=== PATIENT | male | born 1955 | race Caucasian/White ===

== ENCOUNTER 2018-05-17 22:57 | Inpatient (IN) | payer OTHER ==
[~2018-05-17] VITALS: Ht 175.3 cm; Wt 70.7 kg
[2018-05-17 23:29] LABS: BASOPHILS # (AUTO) 0.05 x10^3/uL (0-0.1); BASOPHILS % (AUTO) 1 % (0-1); EOSINOPHILS # (AUTO) 0.19 x10^3/uL (0-0.4); EOSINOPHILS % (AUTO) 2 % (1-7); LYMPHOCYTES # (AUTO) 1.77 x10^3/uL (1-3.4); LYMPHOCYTES % (AUTO) 17 % (22-44); MD NO; MEAN CORPUSCULAR HEMOGLOBIN 30.4 pg (27.5-34.5); MEAN CORPUSCULAR HGB CONC 34.3 g/dL (33.2-36.2); MEAN CORPUSCULAR VOLUME 88.7 fL (81-97); MEAN PLATELET VOLUME 8.9 fL (7.4-10.4); MONOCYTES # (AUTO) 0.54 x10^3/uL (0.2-0.8); MONOCYTES % (AUTO) 5 % (2-9); NEUTROPHILS # (AUTO) 7.73 x10^3/uL (1.8-6.8); NEUTROPHILS % (AUTO) 75 % (42-75); PLATELET COUNT 241 x10^3/uL (130-400); RED BLOOD COUNT 4.25 x10^6/uL (4.38-5.82); RED CELL DISTRIBUTION WIDTH 13.5 % (9.4-14.8)
[2018-05-17 23:40] LABS: ALANINE AMINOTRANSFERASE 31 U/L (12-78); ALBUMIN 3.5 g/dL (3.4-5.0); ANION GAP 7 mmol/L (5-15); CALCIUM 8.5 mg/dL (8.5-10.1); CHLORIDE 110 mmol/L (98-107)
[2018-05-17 23:43] LABS: ALKALINE PHOSPHATASE 105 U/L (45-117); BILIRUBIN,TOTAL 0.5 mg/dL (0.2-1.0); CREATININE 0.88 mg/dL (0.7-1.3); TOTAL PROTEIN 6.3 g/dL (6.4-8.2)
[2018-05-18] MEDS ORDERED: METO25TA35 PO (00:18)
[2018-05-18] MEDS ORDERED: NAPR500T8 PO (00:18)
[2018-05-18] MEDS ORDERED: MORP-52 PO (00:18)
[2018-05-18] MEDS ORDERED: ATOR80TA PO (00:18)
[2018-05-18] MEDS ORDERED: LISI-167 PO (00:18)
[2018-05-18] MEDS ORDERED: METF500T5 PO (00:18)
[2018-05-18] MEDS ORDERED: ONDANSETRON 2MG/ML, 2ML IVPush ONE (00:30)
[2018-05-18] MEDS ORDERED: SODIUM CHLORIDE 0.9% 1,000ML IVBOLUS ONE (00:30)
[2018-05-18] MEDS ORDERED: SODIUM CHLORIDE FLUSH 10ML SYR IVF ONE (00:30)
[2018-05-18] MEDS ORDERED: MORPHINE SULFATE 4 MG/ML, 1ML IVPush PRN (00:30)
[2018-05-18] MEDS ORDERED: POLY17PO5 PO (00:34)
[2018-05-18] MEDS: LACTATED RINGERS 1,000 ML IV SCH ×3 (00:57→21:40)
[2018-05-18] MEDS ORDERED: MORPHINE SULFATE 4 MG/ML, 1ML ONE (00:59)
[2018-05-18] MEDS ORDERED: ACETAMINOPHEN 325 MG TABLET PO PRN (01:00)
[2018-05-18] MEDS ORDERED: ONDANSETRON 2MG/ML, 2ML IVPush PRN (01:00)
[2018-05-18 01:20] VITALS: BP 128/79
[2018-05-18 01:36] VITALS: BP 128/79
[2018-05-18] MEDS: ENOXAPARIN 40 MG/0.4 ML SQ SCH (03:03)
[2018-05-18 05:16] LABS: BASOPHILS # (AUTO) 0.03 x10^3/uL (0-0.1); BASOPHILS % (AUTO) 0 % (0-1); EOSINOPHILS # (AUTO) 0.23 x10^3/uL (0-0.4); EOSINOPHILS % (AUTO) 2 % (1-7); LYMPHOCYTES # (AUTO) 1.59 x10^3/uL (1-3.4); LYMPHOCYTES % (AUTO) 17 % (22-44); MD NO; MEAN CORPUSCULAR HEMOGLOBIN 30.5 pg (27.5-34.5); MEAN CORPUSCULAR HGB CONC 33.9 g/dL (33.2-36.2); MEAN CORPUSCULAR VOLUME 89.7 fL (81-97); MEAN PLATELET VOLUME 8.9 fL (7.4-10.4); MONOCYTES # (AUTO) 0.54 x10^3/uL (0.2-0.8); MONOCYTES % (AUTO) 6 % (2-9); NEUTROPHILS # (AUTO) 6.98 x10^3/uL (1.8-6.8); NEUTROPHILS % (AUTO) 75 % (42-75); PLATELET COUNT 197 x10^3/uL (130-400); RED BLOOD COUNT 4.07 x10^6/uL (4.38-5.82); RED CELL DISTRIBUTION WIDTH 13.4 % (9.4-14.8)
[2018-05-18] MEDS: morphine SULFATE 10 MG/ML, 1ML IVPush PRN ×2 (05:19→22:15)
[2018-05-18 05:28] LABS: CHLORIDE 112 mmol/L (98-107)
[2018-05-18 05:35] LABS: ALANINE AMINOTRANSFERASE 40 U/L (12-78); ALKALINE PHOSPHATASE 105 U/L (45-117); ANION GAP 9 mmol/L (5-15); BILIRUBIN,TOTAL 0.7 mg/dL (0.2-1.0); CALCIUM 7.8 mg/dL (8.5-10.1); CREATININE 0.77 mg/dL (0.7-1.3); TOTAL PROTEIN 5.6 g/dL (6.4-8.2); TRIGLYCERIDES 77 mg/dL (50-200)
[2018-05-18 06:33] LABS: MICROSCOPIC AUTO
[2018-05-18 06:44] LABS: CULTURE INDICATED? YES
[2018-05-18 08:03] VITALS: BP 134/76
[2018-05-18] MEDS: LACTULOSE 10 GM/15 ML UDC PO SCH ×2 (08:37→21:45)
[2018-05-18] MEDS: ATORVASTATIN 80 MG TABLET PO SCH (08:39)
[2018-05-18] MEDS: METOPROLOL TARTRATE 25 MG TABLET PO SCH (08:40)
[2018-05-18] MEDS ORDERED: POLYETHYLENE GLYCOL 17 GM PACKET PO SCH (09:00)
[2018-05-18 13:57] VITALS: BP 130/78
[2018-05-18 19:36] VITALS: BP 122/63
[2018-05-19 01:33] VITALS: BP 105/63
[2018-05-19] MEDS: ENOXAPARIN 40 MG/0.4 ML SQ SCH (03:03)
[2018-05-19] MEDS: LACTATED RINGERS 1,000 ML IV SCH (05:25)
[2018-05-19] MEDS: morphine SULFATE 10 MG/ML, 1ML IVPush PRN (05:49)
[2018-05-19 07:25] VITALS: BP 111/68
[2018-05-19] MEDS: LACTULOSE 10 GM/15 ML UDC PO SCH (09:00)
[2018-05-19] MEDS: METOPROLOL TARTRATE 25 MG TABLET PO SCH (09:19)
[2018-05-19] MEDS: ATORVASTATIN 80 MG TABLET PO SCH (09:19)
[2018-05-19 14:04] VITALS: BP 104/65
== END 2018-05-19 15:00 | disposition home or self-care (01) | DRG 440 ==
LOC: ED 23:59 → SUATTDRO 05-18 00:40 → EDIP 05-18 00:40 → 3NE 05-18 01:20 → DCLOUNGE 05-19 15:00
PROVIDERS: ADMIT Hospitalist; ATTEND Family Medicine
DX: K85.00 Idiopathic acute pancreatitis without necrosis or infection (principal); E11.9 Type 2 diabetes mellitus without complications; E78.5 Hyperlipidemia, unspecified; I10 Essential (primary) hypertension; I25.10 Atherosclerotic heart disease of native coronary artery without angina pectoris; K21.9 Gastro-esophageal reflux disease without esophagitis; K59.00 Constipation, unspecified; Z95.1 Presence of aortocoronary bypass graft; Z90.49 Acquired absence of other specified parts of digestive tract
CPT/HCPCS: 36415; 74022; 80053; 81001; 83690; 84478; 85025; 87086; 96361; 96374; J1650; J2405; J2270; J7030; J7120

== ENCOUNTER 2018-06-17 12:36 | Emergency (ER) | payer OTHER ==
[~2018-06-17] VITALS: Ht 175.3 cm; Wt 62.7 kg
[~2018-06-17 12:36] MED LIST: ATOR80TA PO; LISI-167 PO; METF500T5 PO; METO25TA35 PO; MORP-52 PO; NAPR500T8 PO; POLY17PO5 PO
[2018-06-17 12:41] VITALS: BP 105/64
== END 2018-06-17 14:08 | disposition home or self-care (01) ==
LOC: ED 13:00
DX: S83.92XA Sprain of unspecified site of left knee, initial encounter (principal); I25.810 Atherosclerosis of coronary artery bypass graft(s) without angina pectoris; I10 Essential (primary) hypertension; E78.5 Hyperlipidemia, unspecified; Z90.89 Acquired absence of other organs; Z90.49 Acquired absence of other specified parts of digestive tract; E11.9 Type 2 diabetes mellitus without complications; X50.1XXA Overexertion from prolonged static or awkward postures, initial encounter; Y93.01 Activity, walking, marching and hiking; Y92.830 Public park as the place of occurrence of the external cause; Y99.8 Other external cause status; Z95.1 Presence of aortocoronary bypass graft
CPT/HCPCS: 29505; 99284

== ENCOUNTER 2019-12-31 12:52 | Emergency (ER) | payer MEDICARE, MEDICAID ==
[~2019-12-31] VITALS: Ht 175.3 cm; Wt 58.7 kg
[~2019-12-31 12:52] MED LIST changes: +METF500T17 PO; -METF500T5 PO
[2019-12-31 13:03] VITALS: BP 137/67
[2019-12-31 13:26] LABS: BASOPHILS # (AUTO) 0.08 x10^3/uL (0-0.1); BASOPHILS % (AUTO) 1 % (0-1); EOSINOPHILS # (AUTO) 0.02 x10^3/uL (0-0.4); EOSINOPHILS % (AUTO) 0 % (1-7); LYMPHOCYTES # (AUTO) 1.36 x10^3/uL (1-3.4); LYMPHOCYTES % (AUTO) 13 % (22-44); MD NO; MEAN CORPUSCULAR HEMOGLOBIN 30.2 pg (27.5-34.5); MEAN CORPUSCULAR HGB CONC 33.2 g/dL (33.2-36.2); MEAN CORPUSCULAR VOLUME 90.9 fL (81-97); MEAN PLATELET VOLUME 9.4 fL (7.4-10.4); MONOCYTES # (AUTO) 0.34 x10^3/uL (0.2-0.8); MONOCYTES % (AUTO) 3 % (2-9); NEUTROPHILS # (AUTO) 8.93 x10^3/uL (1.8-6.8); NEUTROPHILS % (AUTO) 83 % (42-75); PLATELET COUNT 285 x10^3/uL (130-400); RED BLOOD COUNT 4.56 x10^6/uL (4.38-5.82); RED CELL DISTRIBUTION WIDTH 13.8 % (9.4-14.8)
[2019-12-31] MEDS ORDERED: DIPH,PERTUSS(ACELL),TET VAC/PF 0.5 ML IM-VACC ONE (13:30)
[2019-12-31 13:35] LABS: ALBUMIN 3.8 g/dL (3.4-5.0); ANION GAP 7 mmol/L (5-15); CALCIUM 8.6 mg/dL (8.5-10.1); CHLORIDE 112 mmol/L (98-107); CREATININE 0.94 mg/dL (0.7-1.3)
--- NOTE | 2019-12-31 14:10 | NUR ---
RAIL SPECIALIST: PT TO ROOM VIA WHEELCHAIR FROM [facility]
--- NOTE | 2019-12-31 14:32 | NUR ---
pT HERE FOR LEFT ANKLE SWELLING. PT HAD SURGERY ON THAT SIDE AND HARDWARE PLACED ABOUT 1 YEAR AGO. PT REPORTS PAIN WITH AMBULATION. PT DENIES TRAUMA. PT CONNECTED TO MONITORS AND CALL LIGHT IN REACH. BEDRAILS UP.
[2019-12-31] MEDS ORDERED: LIDOCAINE 2%, 20ML SQ ONE (15:00)
[2019-12-31] MEDS ORDERED: BUPIVACAINE/PF-EPI 0.25% 1:200K SQ ONE (15:00)
[2019-12-31] MEDS ORDERED: BUPIVACAINE 0.25% ONE (15:16)
[2019-12-31] MEDS ORDERED: LIDOCAINE 1%-EPI 1:100K, 20ML ONE (15:16)
--- NOTE | 2019-12-31 16:23 | NUR ---
Patient/Caregiver given discharge instructions and they have confirmed that they understand the instructions. Patient ambulatory with steady gait.
== END 2019-12-31 16:58 | disposition home or self-care (01) ==
LOC: ED 13:30
DX: M79.672 Pain in left foot (principal); E11.9 Type 2 diabetes mellitus without complications; I25.10 Atherosclerotic heart disease of native coronary artery without angina pectoris; I10 Essential (primary) hypertension; E78.5 Hyperlipidemia, unspecified; Z90.89 Acquired absence of other organs; Z90.49 Acquired absence of other specified parts of digestive tract; Z95.1 Presence of aortocoronary bypass graft
CPT/HCPCS: 10060; 36415; 80048; 82040; 85025; 99284

== ENCOUNTER 2020-05-12 14:17 | Emergency (ER) | payer MEDICARE, MEDICAID ==
[~2020-05-12] VITALS: Ht 175.3 cm; Wt 65.6 kg
[2020-05-12 14:18] VITALS: BP 166/76
--- NOTE | 2020-05-12 14:43 | NUR ---
AGRICULTURE INTERNSHIP: PT TO ROOM FROM LOBBY, GAIT SLOW AND STEADY
[2020-05-12] MEDS ORDERED: HYDROmorphone 1 MG/ML, 1ML INJ ONE (15:21)
[2020-05-12] MEDS ORDERED: HYDROmorphone 2 MG/ML, 1ML IM ONE (15:30)
[2020-05-12 15:32] LABS: BASOPHILS # (AUTO) 0.04 x10^3/uL (0-0.1); BASOPHILS % (AUTO) 0 % (0-1); EOSINOPHILS # (AUTO) 0.22 x10^3/uL (0-0.4); EOSINOPHILS % (AUTO) 2 % (1-7); LYMPHOCYTES # (AUTO) 0.92 x10^3/uL (1-3.4); LYMPHOCYTES % (AUTO) 9 % (22-44); MD NO; MEAN CORPUSCULAR HEMOGLOBIN 29.9 pg (27.5-34.5); MEAN CORPUSCULAR HGB CONC 32.4 g/dL (33.2-36.2); MEAN CORPUSCULAR VOLUME 92.3 fL (81-97); MEAN PLATELET VOLUME 8.4 fL (7.4-10.4); MONOCYTES # (AUTO) 0.55 x10^3/uL (0.2-0.8); MONOCYTES % (AUTO) 5 % (2-9); NEUTROPHILS # (AUTO) 8.61 x10^3/uL (1.8-6.8); NEUTROPHILS % (AUTO) 83 % (42-75); PLATELET COUNT 295 x10^3/uL (130-400); RED BLOOD COUNT 4.59 x10^6/uL (4.38-5.82); RED CELL DISTRIBUTION WIDTH 13.8 % (9.4-14.8)
[2020-05-12 15:40] LABS: ALBUMIN 4.1 g/dL (3.4-5.0); ANION GAP 5 mmol/L (5-15); CALCIUM 8.9 mg/dL (8.5-10.1); CHLORIDE 112 mmol/L (98-107); CREATININE 1.15 mg/dL (0.7-1.3)
[2020-05-12] MEDS ORDERED: METHYLNALTREXONE 12 MG/0.6 ML SYR SQ ONE ×2 (16:11→16:30)
--- NOTE | 2020-05-12 17:12 | NUR ---
PT CONTINUES TO ATTEMPT UA WO RESULTS ERP AWARE NO NEW ORDERS
== END 2020-05-12 18:57 | disposition home or self-care (01) ==
LOC: ED 15:41
DX: S29.012A Strain of muscle and tendon of back wall of thorax, initial encounter (principal); K59.00 Constipation, unspecified; F11.99 Opioid use, unspecified with unspecified opioid-induced disorder; M79.89 Other specified soft tissue disorders; R94.31 Abnormal electrocardiogram [ECG] [EKG]; I10 Essential (primary) hypertension; E11.9 Type 2 diabetes mellitus without complications; I25.10 Atherosclerotic heart disease of native coronary artery without angina pectoris; E78.5 Hyperlipidemia, unspecified; Z90.89 Acquired absence of other organs; Z90.49 Acquired absence of other specified parts of digestive tract; Z95.1 Presence of aortocoronary bypass graft; X58.XXXA Exposure to other specified factors, initial encounter; Y93.89 Activity, other specified; Y92.89 Other specified places as the place of occurrence of the external cause; Y99.8 Other external cause status
CPT/HCPCS: 36415; 80048; 82040; 85025; 93005; 93971; 96372; 99285; J1170

== ENCOUNTER 2020-05-14 02:04 | Emergency (ER) | payer MEDICARE, MEDICAID ==
[~2020-05-14] VITALS: Ht 175.3 cm; Wt 65.5 kg
[2020-05-14] MEDS ORDERED: METHYLNALTREXONE 12 MG/0.6 ML SYR SQ ONE ×2 (03:24→03:30)
[2020-05-14] MEDS ORDERED: LORazepam 1MG TABLET ONE (03:24)
[2020-05-14] MEDS ORDERED: LORazepam 1MG TABLET PO ONE (03:30)
[2020-05-14 04:58] VITALS: BP 142/73
== END 2020-05-14 05:50 | disposition home or self-care (01) ==
LOC: ED 04:38
DX: S39.012A Strain of muscle, fascia and tendon of lower back, initial encounter (principal); K59.00 Constipation, unspecified; E78.5 Hyperlipidemia, unspecified; E11.9 Type 2 diabetes mellitus without complications; K21.9 Gastro-esophageal reflux disease without esophagitis; I25.10 Atherosclerotic heart disease of native coronary artery without angina pectoris; I10 Essential (primary) hypertension; Z90.49 Acquired absence of other specified parts of digestive tract; X58.XXXA Exposure to other specified factors, initial encounter; Y93.89 Activity, other specified; Y92.89 Other specified places as the place of occurrence of the external cause; Y99.8 Other external cause status
CPT/HCPCS: 96372; 99283

== ENCOUNTER 2020-08-19 18:11 | Emergency (ER) | payer MEDICARE, MEDICAID ==
[~2020-08-19] VITALS: Ht 175.3 cm; Wt 64.3 kg
--- NOTE | 2020-08-19 19:14 | NUR ---
ASSUMED CARE OF PATIENT. PATIENT REPORTS HE HAS HAD LOOSE STOOL AND HAS NOT BEEN ABLE TO CONTROL HIS BOWELS. PT SEEN BY DR GILL. NO ACUTE DISTRESS NOTED. VS STABLE. CALL LIGHT IN PLACE. WILL CONTINUE TO MONITOR.
[2020-08-19 19:19] LABS: BASOPHILS % (AUTO) 1 % (0-1); EOSINOPHILS % (AUTO) 2 % (1-7); LYMPHOCYTES % (AUTO) 18 % (22-44); MEAN CORPUSCULAR HEMOGLOBIN 26.6 pg (27.5-34.5); MEAN CORPUSCULAR HGB CONC 32.3 g/dL (33.2-36.2); MEAN PLATELET VOLUME 8.1 fL (7.4-10.4); MONOCYTES % (AUTO) 8 % (2-9); NEUTROPHILS % (AUTO) 71 % (42-75); PLATELET COUNT 314 x10^3/uL (130-400); RED BLOOD COUNT 4.14 x10^6/uL (4.38-5.82); RED CELL DISTRIBUTION WIDTH 15.5 % (9.4-14.8)
[2020-08-19 19:31] LABS: ALBUMIN 3.5 g/dL (3.4-5.0); ANION GAP 6 mmol/L (5-15); CALCIUM 8.7 mg/dL (8.5-10.1); CHLORIDE 111 mmol/L (98-107)
[2020-08-19 19:34] LABS: MD NO
[2020-08-19 19:36] LABS: ALANINE AMINOTRANSFERASE 15 U/L (12-78); ALKALINE PHOSPHATASE 134 U/L (45-117); BILIRUBIN,TOTAL 0.4 mg/dL (0.2-1.0); TOTAL PROTEIN 6.7 g/dL (6.4-8.2); TROPONIN I < 0.015 ng/mL (0.000-0.045)
--- NOTE | 2020-08-19 19:58 | NUR ---
PT REPORTS HE ONLY URINATES TWICE A DAY, NEXT TIME IS AT 9 PM. PT IS NOT ABLE TO PROVIDE UA AT THIS TIME.
--- NOTE | 2020-08-19 20:02 | NUR ---
PT WENT AT CT
--- NOTE | 2020-08-19 20:13 | NUR ---
PT RETURNS FROM CT
[2020-08-19] MEDS ORDERED: OMNIPAQUE 350 MG/ML, 100ML BOTTLE ONE (20:15)
--- NOTE | 2020-08-19 20:52 | NUR ---
DR CID HAS UPDATD PATIENT. UA SENT
[2020-08-19 21:09] LABS: MICROSCOPIC INDICATED
--- NOTE | 2020-08-19 21:37 | NUR ---
PT RESTING IN ROOM. REGULAR RESP. NO ACUTE DISTRESS NOTED. CALL LIGHT IN PLACE. WILL CONTINUE TO MONITOR.
[2020-08-19] MEDS ORDERED: MAALOX/HYOSCYAMINE/LIDOCAINE 45 ML BTL PO ONE (22:00)
[2020-08-19] MEDS ORDERED: MAALOX/HYOSCYAMINE/LIDOCAINE 45 ML BTL ONE (22:06)
[2020-08-19 22:32] VITALS: BP 139/81
== END 2020-08-19 22:34 | disposition home or self-care (01) ==
LOC: ED 22:16
DX: A09 Infectious gastroenteritis and colitis, unspecified (principal); N20.2 Calculus of kidney with calculus of ureter; R94.31 Abnormal electrocardiogram [ECG] [EKG]; I25.10 Atherosclerotic heart disease of native coronary artery without angina pectoris; Z95.1 Presence of aortocoronary bypass graft
CPT/HCPCS: 36415; 74177; 80053; 81001; 83690; 84484; 85025; 93005; 99285; Q9967

== ENCOUNTER 2020-09-27 12:16 | Emergency (ER) | payer MEDICARE, MEDICAID ==
[~2020-09-27] VITALS: Ht 175.3 cm; Wt 63.8 kg
[2020-09-27] MEDS ORDERED: CYCLOBENZAPRINE 10 MG TABLET PO ONE (13:00)
[2020-09-27] MEDS ORDERED: ACETAMINOPHEN 325 MG TABLET PO ONE (13:00)
[2020-09-27] MEDS ORDERED: KETOROLAC 30 MG/1 ML IM ONE (13:00)
--- NOTE | 2020-09-27 13:06 | NUR ---
PT TO XR W TECH
[2020-09-27] MEDS ORDERED: CYCLOBENZAPRINE 10 MG TABLET ONE (13:40)
[2020-09-27] MEDS ORDERED: KETOROLAC 30 MG/1 ML ONE (13:40)
[2020-09-27] MEDS ORDERED: ACETAMINOPHEN 325 MG TABLET ONE (13:40)
--- NOTE | 2020-09-27 13:52 | NUR ---
MD IS AT THE BEDSIDE FOR ASSESSMENT./CONSULT PT IS PREPARING TO PROVIDE A URINE SAMPLE.
[2020-09-27 13:59] LABS: MEAN CORPUSCULAR HEMOGLOBIN 25.3 pg (27.5-34.5); MEAN CORPUSCULAR HGB CONC 32.6 g/dL (33.2-36.2); MEAN PLATELET VOLUME 7.7 fL (7.4-10.4); PLATELET COUNT 391 x10^3/uL (130-400); RED BLOOD COUNT 3.81 x10^6/uL (4.38-5.82); RED CELL DISTRIBUTION WIDTH 16.4 % (9.4-14.8)
[2020-09-27 14:09] LABS: CHLORIDE 109 mmol/L (98-107)
[2020-09-27 14:15] LABS: ALANINE AMINOTRANSFERASE 18 U/L (12-78); ALBUMIN 2.4 g/dL (3.4-5.0); ALKALINE PHOSPHATASE 185 U/L (45-117); ANION GAP 8 mmol/L (5-15); BILIRUBIN,TOTAL 0.6 mg/dL (0.2-1.0); CALCIUM 8.4 mg/dL (8.5-10.1); CREATININE 1.16 mg/dL (0.7-1.3); TOTAL PROTEIN 6.4 g/dL (6.4-8.2)
[2020-09-27 14:21] LABS: MICROSCOPIC INDICATED
--- NOTE | 2020-09-27 14:23 | NUR ---
MARIE (RN) IS ASSUMING CARE OF THIS PT WHUILE I HAVE A LUNCH BREAK. SBAR WAS EXCHANGED AT THE BEDSIDE.
[2020-09-27] MEDS ORDERED: SODIUM CHLORIDE FLUSH 10ML SYR IVF ONE (14:30)
[2020-09-27] MEDS ORDERED: SODIUM CHLORIDE 0.9% 1,000ML IVBOLUS ONE (14:30)
[2020-09-27] MEDS ORDERED: CEFTRIAXONE PMX 1GM/50ML 50 ML IVPB ONE (14:30)
[2020-09-27 14:32] LABS: MD YES
--- NOTE | 2020-09-27 14:38 | NUR ---
PT TO CT.
[2020-09-27] MEDS ORDERED: CEFTRIAXONE PMX 1GM/50ML 50 ML ONE (14:49)
[2020-09-27 15:00] LABS: BANDS%(MANUAL) 7 % (0-7); LYMPHS% (MANUAL) 3 % (22-44); MONOS% (MANUAL) 3 % (2-9); SEGS% (MANUAL) 87 % (42-75)
[2020-09-27 15:02] LABS: <PLATELET ESTIMATE> ADEQUATE; <PLT MORPHOLOGY> NORMAL PLT MORPH; ACANTHOCYTES 1+; ANISOCYTOSIS 1+; CRENATED 1+; OVALOCYTES 1+; SCHISTOCYTES 1+
--- NOTE | 2020-09-27 15:08 | NUR ---
BREAK RN: PT RETURNED FROM CT. PIV, IVF AND ABX STARTED PER EMAR. PT RESTING W/ CALL LIGHT IN REACH AND SIDE RAILS UPX2. VSS, NHI.
[2020-09-27 15:38] VITALS: BP 94/50
--- NOTE | 2020-09-27 16:04 | NUR ---
THIS FLOAT RN AT BEDSIDE TO DC PT FOR PRIMARY RN, ANTONIO. PT VERBALIZED UNDERSTANDING TO DC INSTRUCTIONS. REQUESTING A SNACK PRIOR TO DC. PT PROVIDED PUDDING AND CIRILO CRACKERS. PT DENIES FURTHER NEEDS. AMBULATORY C STEADY GAIT.
== END 2020-09-27 16:09 | disposition home or self-care (01) ==
LOC: ED 15:31
DX: A41.9 Sepsis, unspecified organism (principal); D72.829 Elevated white blood cell count, unspecified; N30.00 Acute cystitis without hematuria; N10 Acute pyelonephritis; D53.9 Nutritional anemia, unspecified; I10 Essential (primary) hypertension; E11.9 Type 2 diabetes mellitus without complications; K21.9 Gastro-esophageal reflux disease without esophagitis; E78.5 Hyperlipidemia, unspecified; Z90.89 Acquired absence of other organs; Z90.49 Acquired absence of other specified parts of digestive tract
CPT/HCPCS: 36415; 72110; 74176; 80053; 81001; 83605; 84145; 85025; 87040; 87077; 87086; 87186; 96372; 96374; 99285; J0696; J1885; J7030

== ENCOUNTER 2020-10-07 17:39 | Emergency (ER) | payer MEDICARE, MEDICAID ==
[~2020-10-07] VITALS: Ht 175.3 cm; Wt 62.8 kg
--- NOTE | 2020-10-07 19:26 | NUR ---
PT AMBULATORY TO ROOM AT 1915 WITH STEADY GAIT. SITTING IN BED,
--- NOTE | 2020-10-07 19:43 | NUR ---
PT SITTING IN BED, NADN. CONNECTED TO BP AND O2 MONITORS. PT DENIES ANY COMPLAINTS R/T HIS UTI. STATES HE COMPLETED HIS COURSE OF ABX PRESCRIBED. 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 HESHAM, CASE MANAGEMENT CONSULTED ABOUT OUTPATIENT [facility]ION [facility]. MD JACOBSON UPDATED ABOUT THE 1-5 POTENTIAL DAYS IT MAY TAKE TO SET THIS SERVICE UP. WILL CONTINUE TO MONITOR PATIENT.
[2020-10-07 19:54] LABS: MICROSCOPIC NOT IND
[2020-10-07 19:58] LABS: BASOPHILS % (AUTO) 1 % (0-1); EOSINOPHILS % (AUTO) 1 % (1-7); LYMPHOCYTES % (AUTO) 19 % (22-44); MEAN CORPUSCULAR HEMOGLOBIN 25.3 pg (27.5-34.5); MEAN CORPUSCULAR HGB CONC 32.7 g/dL (33.2-36.2); MEAN PLATELET VOLUME 7.5 fL (7.4-10.4); MONOCYTES % (AUTO) 9 % (2-9); NEUTROPHILS % (AUTO) 70 % (42-75); PLATELET COUNT 553 x10^3/uL (130-400); RED BLOOD COUNT 4.07 x10^6/uL (4.38-5.82); RED CELL DISTRIBUTION WIDTH 16.9 % (9.4-14.8)
[2020-10-07 19:59] LABS: MD NO
[2020-10-07 20:01] LABS: ANION GAP 4 mmol/L (5-15); CHLORIDE 109 mmol/L (98-107); CREATININE 0.93 mg/dL (0.7-1.3)
--- NOTE | 2020-10-07 20:45 | NUR ---
PT SLEEPING, VISIBLE CHEST RISE AND FALL. CHART UP FOR RECHECK.
--- NOTE | 2020-10-07 21:26 | NUR ---
ERP BACK TO BEDSIDE TO UPDATE PT ON POC.
[2020-10-07 21:31] VITALS: BP 115/68
--- NOTE | 2020-10-07 21:32 | NUR ---
PER MD JACOBSON, INFECTION PREVENTION CONSULTED, PT NEEDS NO FURTHER TREATMENT.
== END 2020-10-07 21:50 | disposition home or self-care (01) ==
LOC: ED 20:02
DX: R78.81 Bacteremia (principal); E11.9 Type 2 diabetes mellitus without complications; I11.0 Hypertensive heart disease with heart failure; E78.5 Hyperlipidemia, unspecified; K21.9 Gastro-esophageal reflux disease without esophagitis; I25.10 Atherosclerotic heart disease of native coronary artery without angina pectoris; Z90.89 Acquired absence of other organs; Z90.49 Acquired absence of other specified parts of digestive tract; Z95.1 Presence of aortocoronary bypass graft
CPT/HCPCS: 36415; 80048; 81003; 82040; 83605; 84145; 85025; 87040; 99283

== ENCOUNTER 2021-01-16 14:13 | Emergency (ER) | payer MEDICARE, MEDICAID ==
[~2021-01-16] VITALS: Ht 175.3 cm; Wt 62.1 kg
--- NOTE | 2021-01-16 15:26 | NUR ---
HAND STONER: PT TO ROOM FROM LOBBY, GAIT SLOW AND STEADY
--- NOTE | 2021-01-16 15:40 | NUR ---
PATIENT WALKED BACK FROM TRIAGE WITH CHIEF C/O DIARRHEA AND VOMITTING. PER PATIENT HE WAS HERE YESTERDAY FOR ABD PAIN, AND TODAY HAD 8 BM'S AND 2 EPISODES OF EMESIS SINCE 0200 AM. PATIENT C/O LOWER ABD PAIN AND LOW BACK PAIN. ISABELLAN, VSS, CALL LIGHT WITHIN REACH.
--- NOTE | 2021-01-16 16:38 | NUR ---
ERPA AT BEDSIDE FOR EVALUATION.
[2021-01-16] MEDS ORDERED: HYDROmorphone 1 MG/ML, 1ML INJ IV ONE (17:00)
[2021-01-16] MEDS ORDERED: SODIUM CHLORIDE FLUSH 10ML SYR IVF ONE (17:00)
[2021-01-16] MEDS ORDERED: ONDANSETRON 2MG/ML, 2ML IVPush ONE (17:00)
--- NOTE | 2021-01-16 17:14 | NUR ---
PATIENT TO IMAGING.
[2021-01-16] MEDS ORDERED: HYDROmorphone 1 MG/ML, 1ML INJ ONE (17:19)
[2021-01-16] MEDS ORDERED: ONDANSETRON 2MG/ML, 2ML ONE (17:19)
--- NOTE | 2021-01-16 17:34 | NUR ---
20 GAUGE IV STARTED LEFT AC, BLOOD COLLECTED AND SENT TO LAB. PATIENT MEDICATED PER eMAR. NADN, VSS, CALL LIGHT WITHIN REACH.
[2021-01-16 17:51] LABS: BASOPHILS % (AUTO) 1 % (0-1); EOSINOPHILS % (AUTO) 0 % (1-7); LYMPHOCYTES % (AUTO) 13 % (22-44); MEAN CORPUSCULAR HEMOGLOBIN 27.6 pg (27.5-34.5); MEAN CORPUSCULAR HGB CONC 33.1 g/dL (33.2-36.2); MEAN PLATELET VOLUME 8.5 fL (7.4-10.4); MONOCYTES % (AUTO) 4 % (2-9); NEUTROPHILS % (AUTO) 82 % (42-75); PLATELET COUNT 359 x10^3/uL (130-400); RED BLOOD COUNT 5.37 x10^6/uL (4.38-5.82); RED CELL DISTRIBUTION WIDTH 16.7 % (9.4-14.8)
--- NOTE | 2021-01-16 17:59 | NUR ---
SPOKE WITH FAMILY FRIEND AND UPDATED ON POC.
[2021-01-16 18:00] LABS: ALANINE AMINOTRANSFERASE 18 U/L (12-78); ALBUMIN 4.3 g/dL (3.4-5.0); ANION GAP 10 mmol/L (5-15); CALCIUM 9.5 mg/dL (8.5-10.1); CHLORIDE 106 mmol/L (98-107)
[2021-01-16 18:02] LABS: ALKALINE PHOSPHATASE 104 U/L (45-117); BILIRUBIN,TOTAL 0.5 mg/dL (0.2-1.0); TOTAL PROTEIN 8.4 g/dL (6.4-8.2)
[2021-01-16 18:14] LABS: MD SCAN
--- NOTE | 2021-01-16 18:14 | NUR ---
URINE COLLECTED AND SENT TO LAB, NADN, VSS, CALL LIGHT WITHIN REACH.
[2021-01-16 18:46] LABS: MICROSCOPIC INDICATED
--- NOTE | 2021-01-16 18:47 | NUR ---
REPORT FROM JEANA PURI
--- NOTE | 2021-01-16 19:01 | NUR ---
PT SITTING UPRIGHT ON NHI LARA, VSS. PT DENIES ANY NEEDS AT THIS TIME. CALL LIGHT AND PERSONAL BELONGINGS WITHIN REACH.
[2021-01-16 19:05] VITALS: BP 140/71
[2021-01-16] MEDS ORDERED: MAALOX/HYOSCYAMINE/LIDOCAINE 45 ML BTL ONE (19:18)
[2021-01-16] MEDS ORDERED: MAALOX/HYOSCYAMINE/LIDOCAINE 45 ML BTL PO ONE (19:30)
--- NOTE | 2021-01-16 19:30 | NUR ---
Patient given discharge instructions and they have confirmed that they understand the instructions. Patient ambulatory with steady gait.
== END 2021-01-16 19:46 | disposition home or self-care (01) ==
LOC: ED 14:38
DX: K52.9 Noninfective gastroenteritis and colitis, unspecified (principal); R10.31 Right lower quadrant pain; R10.9 Unspecified abdominal pain; R11.2 Nausea with vomiting, unspecified; M54.5 Low back pain; K59.00 Constipation, unspecified; K21.9 Gastro-esophageal reflux disease without esophagitis; I25.10 Atherosclerotic heart disease of native coronary artery without angina pectoris; E78.5 Hyperlipidemia, unspecified; I10 Essential (primary) hypertension; E11.9 Type 2 diabetes mellitus without complications; Z90.89 Acquired absence of other organs; Z90.49 Acquired absence of other specified parts of digestive tract
CPT/HCPCS: 36415; 74022; 80053; 81001; 83690; 85025; 96374; 96375; 99284; J1170; J2405

== ENCOUNTER → 2021-02-11 | Outpatient (CLI) | payer MEDICARE, MEDICAID | END | disposition home or self-care (01) | LOC: RAD 08:26 | PROVIDERS: ATTEND Orthopaedic Surgery | DX: M25.572 Pain in left ankle and joints of left foot (principal) ==

== ENCOUNTER 2021-03-28 15:56 | Emergency (ER) | payer MEDICARE, MEDICAID ==
[~2021-03-28] VITALS: Ht 175.3 cm; Wt 60.0 kg
--- NOTE | 2021-03-28 16:35 | NUR ---
KITCHEN AND BATH DESIGNER: PT TO ROOM FROM LOBBY
[2021-03-28] MEDS ORDERED: TRAZ50TA66 PO (16:51)
[2021-03-28] MEDS ORDERED: HYDR1TAB53 PO (16:51)
[2021-03-28] MEDS ORDERED: MORPHINE SULFATE 4 MG/ML, 1ML IVPush PRN (17:30)
[2021-03-28] MEDS ORDERED: FAMOTIDINE 20 MG/2 ML ONE (17:31)
[2021-03-28] MEDS ORDERED: ONDANSETRON 2MG/ML, 2ML ONE (17:31)
[2021-03-28] MEDS ORDERED: MORPHINE SULFATE 4 MG/ML, 1ML ONE (17:31)
[2021-03-28 17:57] LABS: BASOPHILS % (AUTO) 1 % (0-1); EOSINOPHILS % (AUTO) 0 % (1-7); LYMPHOCYTES % (AUTO) 16 % (22-44); MEAN CORPUSCULAR HEMOGLOBIN 27.7 pg (27.5-34.5); MEAN CORPUSCULAR HGB CONC 33.6 g/dL (33.2-36.2); MEAN PLATELET VOLUME 8.2 fL (7.4-10.4); MONOCYTES % (AUTO) 8 % (2-9); NEUTROPHILS % (AUTO) 75 % (42-75); PLATELET COUNT 371 x10^3/uL (130-400); RED BLOOD COUNT 5.24 x10^6/uL (4.38-5.82)
[2021-03-28 17:58] LABS: MD NO
[2021-03-28] MEDS ORDERED: FAMOTIDINE 20 MG/2 ML IVPush ONE (18:00)
[2021-03-28] MEDS ORDERED: ONDANSETRON 2MG/ML, 2ML IVPush ONE (18:00)
[2021-03-28] MEDS ORDERED: SODIUM CHLORIDE 0.9% 1,000ML IVBOLUS ONE (18:00)
[2021-03-28 18:07] LABS: ALANINE AMINOTRANSFERASE 16 U/L (12-78); ALBUMIN 4.3 g/dL (3.4-5.0); ANION GAP 8 mmol/L (5-15); CALCIUM 9.3 mg/dL (8.5-10.1); CHLORIDE 106 mmol/L (98-107); CREATININE 1.04 mg/dL (0.7-1.3)
[2021-03-28 18:09] LABS: ALKALINE PHOSPHATASE 116 U/L (45-117); BILIRUBIN,TOTAL 0.9 mg/dL (0.2-1.0); TOTAL PROTEIN 8.5 g/dL (6.4-8.2)
--- NOTE | 2021-03-28 18:39 | NUR ---
PT RESTING IN ROOM. VS STABLE. CALL LIGHT IN PLACE. WILL CONTINUE TO MONITOR.
--- NOTE | 2021-03-28 18:59 | NUR ---
PT IS NOT ABLE TO GIVE UA AT THIS TIME.
[2021-03-28] MEDS ORDERED: MAALOX/HYOSCYAMINE/LIDOCAINE 45 ML BTL ONE (19:21)
[2021-03-28 19:23] VITALS: BP 130/56
--- NOTE | 2021-03-28 19:24 | NUR ---
EVAN RICHARDSON IN ROOM
--- NOTE | 2021-03-28 19:28 | NUR ---
No UA needed per EVAN Velazquez
[2021-03-28] MEDS ORDERED: MAALOX/HYOSCYAMINE/LIDOCAINE 45 ML BTL PO ONE (19:30)
== END 2021-03-28 19:53 | disposition home or self-care (01) ==
LOC: ED 17:13
DX: R11.2 Nausea with vomiting, unspecified (principal); R10.84 Generalized abdominal pain; I25.10 Atherosclerotic heart disease of native coronary artery without angina pectoris; E11.9 Type 2 diabetes mellitus without complications; K21.9 Gastro-esophageal reflux disease without esophagitis; E78.5 Hyperlipidemia, unspecified; I10 Essential (primary) hypertension
CPT/HCPCS: 36415; 74021; 80053; 83690; 85025; 96361; 96374; 96375; 99285; J2270; J2405; J7030

== ENCOUNTER → 2021-06-02 | Outpatient (CLI) | payer MEDICARE, MEDICAID ==
[~2021-06-02] MED LIST changes: +HYDR1TAB53 PO; +REGADENOSON 0.4 MG/5 ML SYRINGE ONE; +TRAZ50TA66 PO
== END | disposition home or self-care (01) ==
LOC: CFH 12:24
PROVIDERS: ATTEND Internal Medicine Cardiovascular Disease
DX: Z01.810 Encounter for preprocedural cardiovascular examination (principal); I10 Essential (primary) hypertension; I73.9 Peripheral vascular disease, unspecified; Z95.1 Presence of aortocoronary bypass graft
CPT/HCPCS: 78452; 93017; A9502; J2785

== ENCOUNTER 2021-07-07 17:30 | Emergency (ER) | payer MEDICARE, MEDICAID ==
[~2021-07-07] VITALS: Ht 175.3 cm; Wt 60.8 kg
[~2021-07-07 17:30] MED LIST changes: -REGADENOSON 0.4 MG/5 ML SYRINGE ONE
[2021-07-07 17:55] VITALS: BP 128/73
--- NOTE | 2021-07-07 20:29 | NUR ---
pt left ama, signed sheet
== END 2021-07-07 20:31 | disposition left against medical advice (07) ==
LOC: ED 20:25
DX: K59.00 Constipation, unspecified (principal)
CPT/HCPCS: 74021; 99283